=== PATIENT | female | born 1990 | race Caucasian/White ===

== ENCOUNTER 2016-09-05 11:06 | Observation (INO) | payer MEDICAID ==
[~2016-09-05] VITALS: Ht 160 cm; Wt 90.3 kg
== END 2016-09-05 12:35 | disposition home or self-care (01) ==
LOC: L&D 11:06
PROVIDERS: ADMIT Specialist; ATTEND Specialist
DX: O26.893 Other specified pregnancy related conditions, third trimester (principal)
CPT/HCPCS: 99281; G0378; G0379